=== PATIENT | female | born 1950 | race Caucasian/White ===

== ENCOUNTER 2016-11-14 04:38 | Observation (INO) ==
[2016-11-14] MEDS ORDERED: Ipratropium/Albuterol Neb 3 ML IH ONE (04:42)
[2016-11-14 05:09] LABS: Basophils % 0.4 %; Eosinophils % 0.7 %; Hematocrit 29.5 % (35.3-44.9); Hemoglobin 9.7 g/dL (11.5-15.4); Immature Granulocytes % 0.6 % (0-4); Lymphocytes # 0.6 K/mcL (0.6-4.6); Lymphocytes % 11.6 %; Mean Corpuscular HGB Conc 32.9 g/dL (31.6-35.5); Mean Corpuscular Hemoglobin 30.1 pg (28.0-33.3); Mean Corpuscular Volume 91.6 fL (83.0-100.0); Mean Platelet Volume 12.1 fL (9.4-12.4); Monocytes # 0.4 K/mcL (0.0-1.3); Monocytes % 7.3 %; Neutrophils # 4.2 K/mcL (1.6-8.9); Platelet Count 159 K/mcL (140-400); Red Blood Count 3.22 M/mcL (3.82-4.97); Segmented Neutrophils % 79.4 %
[2016-11-14] MEDS ORDERED: *HR* Promethazine 25 MG/ML VIAL IVP STA (05:14)
[2016-11-14 05:15] LABS: Prothrombin Time 22.1 Seconds (9.4-12.1)
--- NOTE | 2016-11-14 05:17 | Emergency Department Note ---
Disposition Clinical Impression: CHF (congestive heart failure) Qualifiers: Congestive heart failure type: unspecified congestive heart failure type Congestive heart failure chronicity: unspecified congestive heart failure chronicity Qualified Code(s): I50.9 - Heart failure, unspecified Disposition: Admitted As Inpatient Condition: Fair SOB HPI - General Chief Complaint: ED Shortness of Breath/Dyspnea Stated Complaint: difficulty breathing Time Seen by Provider: 11/14/16 04:46 Source: EMS Limitations: no limitations Nursing Notes Reviewed: Yes Vital Signs Reviewed: Yes - History of Present Illness Patient is a 66-year-old female. COPD and congestive heart failure. She presents by squad due to difficulty in breathing which began last evening. Pt Subjective Complaint: shortness of breath - Related Data Home Medications Medication Instructions Recorded Confirmed Albuterol Sulfate [Proair Hfa] 2 puff IH Q4-6H PRN 01/12/16 10/08/16 Clopidogrel [Plavix] 75 mg PO DAILY 01/12/16 10/08/16 Duloxetine HCl [Cymbalta] 60 mg PO QHS 01/12/16 10/08/16 Ergocalciferol (VITAMIN D2) 50,000 unit PO DAILY 01/12/16 10/08/16 [Vitamin D2 (50,000 UNIT)] Fluticasone/Salmeterol [Advair 2 each IH BID 01/12/16 10/08/16 500-50 Diskus] Isosorbide MONOnitrate (24 HR) 60 mg PO DAILY 01/12/16 10/08/16 [Imdur] Ranolazine [Ranexa] 1,000 mg PO BID 01/12/16 10/08/16 Simvastatin [Zocor] 20 mg PO HS 01/12/16 10/08/16 Tiotropium [Spiriva] 18 mcg IH 0700 01/12/16 10/08/16 Calcitriol [Rocaltrol] 0.25 mcg PO DAILY 06/25/16 10/08/16 Cetirizine HCl [Zyrtec] 10 mg PO DAILY PRN 06/25/16 10/08/16 LORazepam [Ativan] 1 mg PO BID PRN 06/25/16 10/08/16 Lactulose 15 gm PO HS PRN 06/25/16 10/08/16 Pantoprazole Sodium [Protonix] 40 mg PO DAILY 06/28/16 08/30/16 Tizanidine HCl 4 mg PO TID PRN 06/28/16 10/08/16 Insulin LISPRO [HumaLOG] 20 units SQ TIDWM 10/08/16 10/08/16 Lisinopril 2.5 mg PO DAILY 10/08/16 10/08/16 Promethazine [Phenergan] 12.5 mg PO Q8HR PRN 10/08/16 10/08/16 Previous Rx's Medication Instructions Recorded Furosemide [Lasix] 20 mg PO DAILY #30 tablet 08/27/16 Lactobacillus [Culturelle] 1 each PO BID #6 cap.sprink 08/27/16 Warfarin [Coumadin] 5 mg PO DAILY@1800 #30 tablet 09/01/16 Allopurinol [Zyloprim] 200 mg PO DAILY #60 tablet 10/10/16 Gabapentin [Neurontin] 800 mg PO TID #180 capsule 10/10/16 Insulin DETEMIR [Levemir] 90 unit SQ BID #0 10/10/16 Lactobacillus [Culturelle] 1 each PO BID #6 cap.sprink 10/10/16 Levofloxacin [Levaquin] 500 mg PO DAILY #3 tablet 10/10/16 Metoprolol [Lopressor] 50 mg PO BID #60 tablet 10/10/16 PredniSONE 10 mg PO BIDWM #6 tablet 10/10/16 Allergies Allergy/AdvReac Type Severity Reaction Status Date / Time Penicillins Allergy Hives Verified 11/14/16 04:55 tramadol [From Ultram] Allergy Hives Verified 11/14/16 04:55 aspirin AdvReac Vomiting Verified 11/14/16 04:55 codeine AdvReac Vomiting Verified 11/14/16 04:55 fluticasone AdvReac Rash Verified 11/14/16 04:55 [From Flovent Diskus] morphine AdvReac Hallucinati Verified 11/14/16 04:55 ng Sulfa (Sulfonamide AdvReac Vomiting Verified 11/14/16 04:55 Antibiotics) All systems ED: reviewed and negative except as stated. Past Medical History - Past Medical History Medical history: Reports: arthritis, COPD, DVT, dementia, diabetes, hyperlipidemia, hypertension, myocardial infarction, osteoporosis, renal disease , thyroid disease, TIA Psychiatric history: Reports: depression - Social History Smoking Status: Current every day smoker Smokeless Tobacco Status: No Alcohol use: Reports: none Drug use: Reports: none Physical Exam - General Limitations: no limitations General appearance: alert - Head Head exam: atraumatic - Eye Eye exam: Present: normal appearance - ENT ENT exam: normal exam - Neck Neck exam: Present: normal inspection - Chest Chest inspection: Present: normal inspection - Respiratory Respiratory exam: Present: wheezes - Cardiovascular Cardiovascular exam: Present: regular rate, normal rhythm - Abdominal Exam Abdominal exam: Present: soft, Non-Tender - Expanded Lower Extremity Exam Lower leg exam: Present: swelling Gait: not tested/not observed - Back Exam Back exam: Present: normal inspection - Neurological Exam Neurological exam: Present: alert, oriented X3, CN II-XII intact - Psychiatric Psychiatric exam: Present: normal affect, normal mood - Skin Skin exam: Present: warm, dry Course Vital Signs Temperature 98.2 F 11/14/16 04:40 Pulse Rate 92 11/14/16 04:40 Respiratory Rate 22 11/14/16 04:40 Blood Pressure 138/73 11/14/16 04:40 O2 Sat by Pulse Oximetry 94 L 11/14/16 04:40 Temperature 98.9 F 11/14/16 07:11 Pulse Rate 90 11/14/16 07:11 Respiratory Rate 22 11/14/16 07:11 Blood Pressure 146/76 11/14/16 07:11 O2 Sat by Pulse Oximetry 93 L 11/14/16 07:11 Oxygen Delivery Oxygen Delivery Nasal Cannula Shortness of Breath/Dyspnea - MDM Narrative Medical decision making narrative: Differential: pneumonia Versus COPD versus congestive heart failure versus cardiac event - Lab Data Lab results reviewed: Yes I reviewed the patient's lab results. Result diagrams: 11/14/16 04:55 11/14/16 04:55 Lab Results 11/14/16 11/14/16 11/14/16 Range/Units 04:55 04:55 04:55 WBC 5.3 (4.3-11.1) K/mcL RBC 3.22 L (3.82-4.97) M/mcL Hgb 9.7 L (11.5-15.4) g/dL Hct 29.5 L (35.3-44.9) % MCV 91.6 (83.0-100.0) fL MCH 30.1 (28.0-33.3) pg MCHC 32.9 (31.6-35.5) g/dL RDW 15.0 H (11.5-14.5) % Plt Count 159 (140-400) K/mcL MPV 12.1 (9.4-12.4) fL Immature Gran % 0.6 (0-4) % Seg Neutrophils % 79.4 % Lymphocytes % 11.6 % Monocytes % 7.3 % Eosinophils % 0.7 % Basophils % 0.4 % Neutrophils # 4.2 (1.6-8.9) K/mcL Lymphocytes # 0.6 (0.6-4.6) K/mcL Monocytes # 0.4 (0.0-1.3) K/mcL Eosinophils # 0.0 (0.0-0.6) K/mcL Basophils # 0.0 (0.0-0.2) K/mcL PT 22.1 H (9.4-12.1) Seconds INR 2.0 Sodium 134 L (136-145) mEq/L Potassium 5.2 H (3.5-4.5) mEq/L Chloride 101 (98-109) mEq/L Carbon Dioxide 26 (19-29) mEq/L BUN 29 H (7-20) mg/dL Creatinine 1.31 H (0.57-1.11) mg/dL Est GFR ( Amer) 49 L (> 60) Est GFR (Non-Af Amer) 40 L (> 60) BUN/Creatinine Ratio 22 (6-26) Glucose 236 H (70-99) mg/dL Calculated Osmolality 291 (280-300) Calcium 9.2 (8.6-10.8) mg/dL Total Bilirubin 0.3 (0.2-1.2) mg/dL AST 14 (5-34) Units/L ALT 14 (0-55) Units/L Alkaline Phosphatase 72 (38-126) Units/L Troponin I (0-0.03) ng/mL B-Natriuretic Peptide (0-100) pg/mL Serum Total Protein 6.2 (6.0-8.3) g/dL Albumin 2.6 L (3.5-5.0) g/dL Globulin 3.6 H (2.4-3.5) g/dL Albumin/Globulin Ratio 0.7 L (1.1-2.2) 11/14/16 11/14/16 Range/Units 04:55 04:55 WBC (4.3-11.1) K/mcL RBC (3.82-4.97) M/mcL Hgb (11.5-15.4) g/dL Hct (35.3-44.9) % MCV (83.0-100.0) fL MCH (28.0-33.3) pg MCHC (31.6-35.5) g/dL RDW (11.5-14.5) % Plt Count (140-400) K/mcL MPV (9.4-12.4) fL Immature Gran % (0-4) % Seg Neutrophils % % Lymphocytes % % Monocytes % % Eosinophils % % Basophils % % Neutrophils # (1.6-8.9) K/mcL Lymphocytes # (0.6-4.6) K/mcL Monocytes # (0.0-1.3) K/mcL Eosinophils # (0.0-0.6) K/mcL Basophils # (0.0-0.2) K/mcL PT (9.4-12.1) Seconds INR Sodium (136-145) mEq/L Potassium (3.5-4.5) mEq/L Chloride (98-109) mEq/L Carbon Dioxide (19-29) mEq/L BUN (7-20) mg/dL Creatinine (0.57-1.11) mg/dL Est GFR ( Amer) (> 60) Est GFR (Non-Af Amer) (> 60) BUN/Creatinine Ratio (6-26) Glucose (70-99) mg/dL Calculated Osmolality (280-300) Calcium (8.6-10.8) mg/dL Total Bilirubin (0.2-1.2) mg/dL AST (5-34) Units/L ALT (0-55) Units/L Alkaline Phosphatase (38-126) Units/L Troponin I 0.03 (0-0.03) ng/mL B-Natriuretic Peptide 815 H (0-100) pg/mL Serum Total Protein (6.0-8.3) g/dL Albumin (3.5-5.0) g/dL Globulin (2.4-3.5) g/dL Albumin/Globulin Ratio (1.1-2.2) - Radiology Data Radiology results reviewed: Yes I reviewed the patient's radiology results. ITS Impressions Chest X-Ray 11/14/16 04:40 IMPRESSION: 1. No acute abnormality. D/ / Rikki Goodrich MD / Rikki Goodrich MD Interpreting Provider: Rikki Goodrich MD - EKG Data EKG attestation: Yes I reviewed and interpreted this EKG. EKG shows normal: Reports: sinus rhythm Rate: Reports: normal Rhythm: Reports: NSR Interpretation: Reports: no acute changes, normal EKG
[2016-11-14 05:27] LABS: Albumin 2.6 g/dL (3.5-5.0); Albumin/Globulin Ratio 0.7 (1.1-2.2); Bilirubin,Total 0.3 mg/dL (0.2-1.2); Calcium 9.2 mg/dL (8.6-10.8); Globulin 3.6 g/dL (2.4-3.5); Potassium 5.2 mEq/L (3.5-4.5); Total Protein 6.2 g/dL (6.0-8.3)
[2016-11-14] MEDS ORDERED: Furosemide 20 MG/2 ML VIAL IVP STA ×2 (05:30→07:08)
[2016-11-14] MEDS ORDERED: Naloxone 0.4 MG/ML INJ IVP PRN ×3 (05:40→07:08)
[2016-11-14] MEDS ORDERED: Furosemide 40 MG/4 ML VIAL IVP SCH ×3 (05:45→12:30)
[2016-11-14] MEDS ORDERED: Furosemide 20 MG/2 ML VIAL IVP ONE ×2 (06:15→20:24)
[2016-11-14] MEDS ORDERED: *HR* LORazepam 1 MG TABLET PO PRN (07:08)
[2016-11-14] MEDS ORDERED: Lactulose Oral Soln 20 GM/30 ML UDC PO PRN (07:08)
[2016-11-14] MEDS ORDERED: Loratadine 10 MG TABLET PO PRN (07:08)
[2016-11-14] MEDS: Tiotropium 18 MCG inhalation IH SCH (07:41)
[2016-11-14] MEDS ORDERED: PredniSONE 10 MG TABLET PO SCH (08:00)
[2016-11-14] MEDS ORDERED: Isosorbide MONOnitrate (24 HR) 60 MG TAB.ER.24H PO SCH (09:00)
[2016-11-14] MEDS: Insulin LISPRO 300 UNITS/3 ML VIAL SQ SCH ×3 (10:02→17:45)
[2016-11-14] MEDS: Gabapentin 400 MG CAPSULE PO SCH ×3 (10:03→20:10)
[2016-11-14] MEDS: Ranolazine 500 MG TAB.ER.12H PO SCH ×2 (10:04→20:10)
[2016-11-14] MEDS: Budesonide/Formoterol 160/4.5 MDI IH SCH ×2 (10:15→21:53)
--- NOTE | 2016-11-14 10:21 | Electrocardiograph Report ---
[facility] Test Date: 2016-11-14 Pat Name: Ad Zamora Department: [id number] Room: [facility] Gender: F [employer] Filling: [id number] : 1950 Requested By: Brandon Tatum Order Number: [id number] Reading MD: Armando Jaime MD Measurements Intervals [place] Rate: 91 P: ID: 0 QRS: 6 QRSD: 126 T: 127 QT: 344 QTc: 392 Interpretive Statements SINUS RHYTHM LBBB LATERAL ISCHEMIA Electronically Signed On 11-14-16 10:18:27 EST by Armando Jaime MD
--- NOTE | 2016-11-14 11:55 | Internal Med History&Physical ---
Date of Encounter: 11/14/16 Time of Encounter: 11:25 Assessment and Plan (1) CHF (congestive heart failure) Current visit: Yes Status: Chronic She has been restarted on Lasix, Zestril, and Lopressor. I will order echocardiogram for further evaluation and follow-up from echo done approximately one year ago which showed LVEF 43%. Qualifiers: Congestive heart failure type: unspecified congestive heart failure type Congestive heart failure chronicity: unspecified congestive heart failure chronicity Qualified Code(s): I50.9 - Heart failure, unspecified (2) Acute exacerbation of chronic obstructive airways disease Current visit: No Status: Acute Continue Symbicort and Spiriva as ordered by emergency room. Will add prn albuterol nebs. (3) CKD (chronic kidney disease) stage 3, GFR 30-59 ml/min Current visit: No Status: Chronic We will monitor renal indices periodically. (4) DVT (deep venous thrombosis) Current visit: No Status: Chronic INR is therapeutic. Continue present dose Coumadin Qualifiers: DVT location: lower extremity Affected thrombotic vein of extremity: unspecified lower extremity distal vein Laterality: right Chronicity: acute Qualified Code(s): I82.4Z1 - Acute embolism and thrombosis of unspecified deep veins of right distal lower extremity (5) Hyperuricemia Current visit: Yes Status: Acute We will check uric acid level in a.m. Internal Medicine - H&P: HPI Chief complaint: Dyspnea Admitted From: Home Plans for Post Hospital Care: Home History of present illness: Ms. Zamora is a 66 year old female who came to emergency room stating she had increased dyspnea over the preceding 24 hours. She reported she had to cathi after her dog who had run down the street. She became extremely dyspneic and did not fully recover upon resting. She was evaluated in emergency room and felt to have exacerbation of COPD and CHF. She was admitted to [facility] floor for ongoing care needs. She was hospitalized most recently at [facility] September 2016 with dyspnea. Her respiratory history is significant for having smoked since age 16 up to 2 packs per day. She has COPD and wears oxygen at home. She has been diagnosed with SWATI but states she cannot tolerate CPAP/BiPAP. She had chest CT done during July 2016 [facility] hospitalization. She has continued to smoke AGAINST MEDICAL ADVICE. Past Med Surg Social Fam HX - Past Medical History Medical history: arthritis, COPD, DVT, dementia, diabetes, hyperlipidemia, hypertension, myocardial infarction, osteoporosis, renal disease, thyroid disease, TIA Psychiatric history: depression - Past Surgical History Surgical History: orthopedic, other, other - Social History Smoking Status: Current every day smoker Packs per day: 1 Smokeless Tobacco Status: No Alcohol use: none Drug use: none - Family History Mother Family Member Ethnicity: Non- Living Status: Hx Family Cardiac Disorders: Yes (CHF, HTN) Hx Family Respiratory Disorders: No Hx Family Cancer: No Hx Family GI Disorders: No Hx Family Endocrine Disorder: Yes (Psorosis) Hx Family Neuromuscular Disorders: No Hx Family Neurologic Disorders: No Hx Family HEENT Disorders: No Hx Family Autoimmune Disorders: No Internal Medicine - H&P: Meds Albuterol Sulfate [Proair Hfa] 2 puff IH Q4-6H PRN 01/12/16 [History] Clopidogrel [Plavix] 75 mg PO DAILY 01/12/16 [History] Duloxetine HCl [Cymbalta] 60 mg PO QHS 01/12/16 [History] Ergocalciferol (VITAMIN D2) [Vitamin D2 (50,000 UNIT)] 50,000 unit PO DAILY [History] Fluticasone/Salmeterol [Advair 500-50 Diskus] 2 each IH BID 01/12/16 [History] Isosorbide MONOnitrate (24 HR) [Imdur] 60 mg PO DAILY 01/12/16 [History] Ranolazine [Ranexa] 1,000 mg PO BID 01/12/16 [History] Simvastatin [Zocor] 20 mg PO HS 01/12/16 [History] Tiotropium [Spiriva] 18 mcg IH 0700 01/12/16 [History] Calcitriol [Rocaltrol] 0.25 mcg PO DAILY 06/25/16 [History] Cetirizine HCl [Zyrtec] 10 mg PO DAILY PRN 06/25/16 [History] LORazepam [Ativan] 1 mg PO BID PRN 06/25/16 [History] Lactulose 15 gm PO HS PRN 06/25/16 [History] Pantoprazole Sodium [Protonix] 40 mg PO DAILY 06/28/16 [History] Tizanidine HCl 4 mg PO TID PRN 06/28/16 [History] Furosemide [Lasix] 20 mg PO DAILY #30 tablet 08/27/16 [Rx] Lactobacillus [Culturelle] 1 each PO BID #6 cap.sprink 08/27/16 [Rx] Warfarin [Coumadin] 5 mg PO DAILY@1800 #30 tablet 09/01/16 [Rx] Insulin LISPRO [HumaLOG] 20 units SQ TIDWM 10/08/16 [History] Lisinopril 2.5 mg PO DAILY 10/08/16 [History] Promethazine [Phenergan] 12.5 mg PO Q8HR PRN 10/08/16 [History] Allopurinol [Zyloprim] 200 mg PO DAILY #60 tablet 10/10/16 [Rx] Gabapentin [Neurontin] 800 mg PO TID #180 capsule 10/10/16 [Rx] Insulin DETEMIR [Levemir] 90 unit SQ BID #0 10/10/16 [Rx] Lactobacillus [Culturelle] 1 each PO BID #6 cap.sprink 10/10/16 [Rx] Levofloxacin [Levaquin] 500 mg PO DAILY #3 tablet 10/10/16 [Rx] Metoprolol [Lopressor] 50 mg PO BID #60 tablet 10/10/16 [Rx] PredniSONE 10 mg PO BIDWM #6 tablet 10/10/16 [Rx] Allergies Penicillins Allergy (Verified 11/14/16 04:55) Hives tramadol [From Ultram] Allergy (Verified 11/14/16 04:55) Hives aspirin Adverse Reaction (Verified 11/14/16 04:55) Vomiting codeine Adverse Reaction (Verified 11/14/16 04:55) Vomiting fluticasone [From Flovent Diskus] Adverse Reaction (Verified 11/14/16 04:55) Rash morphine Adverse Reaction (Verified 11/14/16 04:55) Hallucinating Sulfa (Sulfonamide Antibiotics) Adverse Reaction (Verified 11/14/16 04:55) Vomiting All Systems PM: A 10-system review of systems was performed and is negative for pertinent findings except as documented above in the HPI. Review of systems: Review of systems from the September 2016 [facility] hospitalization were reviewed and revised as below. Gen.: Her weight has decreased from the April 2014 [facility] hospitalization at approximately 98 kilograms to present weight of 90.718 kg Cardiovascular: She has hypertension and known ASHD status post [place] 1993 followed by 2 vessel CABG that year. She has had 9 stents placed in the interim with her most recent cath and stents done in early 2013. She has history of DVTs in 1965 and in the mid 1970s in addition to the DVT diagnosed during a recent [facility] visit. She is now on Coumadin. She has a diagnosis of CHF. She had an echocardiogram done 06/04/2014 which showed LVEF of 55%. There was left atrial enlargement with trivial MR and TR. She had a pharmacologic EST December 2014 which showed LVEF of 43% with some global hypokinesia and abnormal septal motion. There was no evidence of ischemia on EKG or perfusion imaging. She follows regularly with a spanish tutor at [facility]. Respiratory: As per history of present illness GI: She has had cholecystectomy but denies disorders of her liver or exocrine pancreas : She is had kidney stones and has been diagnosed with CKD stage III. 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 She has diabetic peripheral neuropathy. Endocrine: She was diagnosed with DM 2 in 1968. She has hyperlipidemia but no known thyroid disease Hematology/oncology: She had uterine cancer 1970 with curative hysterectomy. She had ovary cancer in 1972 with curative oophorectomy. She has history of anemia but denies other internal malignancies or blood disorders Psychiatric: She has anxiety and depression denies other mental health issues Musk skeletal: She has arthritis but denies gout or osteoporosis. - Constitutional Vitals: Temp Pulse Resp BP Pulse Ox 98.4 F 89 26 131/71 95 11/14/16 10:53 11/14/16 10:53 11/14/16 10:53 11/14/16 10:53 11/14/16 10:53 Exam: Gen.: She is a well-developed obese female who has significant dyspnea at rest and is unable to answer many questions. HEENT: Head is atraumatic and normocephalic. Eyes: EOMI. There is no scleral icterus. Mouth: Mucosa is moist. Neck: Supple and nontender. There is no thyromegaly or adenopathy noted. Heart: Tones are difficult to hear because of respiratory sounds Lungs: She has prolonged expiratory phase and mild diffuse wheezing. She is dyspneic and tachypneic Abdomen: Soft and nontender. No masses or guarding are noted. Extremities: There is no cyanosis edema or clubbing noted. Dorsalis pedis and posterior tibial pulses are trace palpable bilaterally. Her right leg is slightly larger than the left. She has well-healed medial right lower leg scar from previous CABG vein graft harvest. Neurologic: Mental status: She is lethargic. She awakens to answer questions briefly but then quickly becomes less responsive. Cranial nerves: Smile is symmetric. Forehead wrinkles bilaterally. Tongue protrudes midline. EOMI. Motor: There is no pronator drift. Cerebellar: Finger to nose is intact bilaterally. Skin: Warm and dry Internal Med - H&P Results - Labs CBC & Chem 7: 11/14/16 04:55 11/14/16 04:55 - VTE Reasons for not Prescribing Prophylaxis: Not indicated-Anticoagulated or INR therapeutic
[2016-11-14] MEDS ORDERED: Isosorbide MONOnitrate (24 HR) 30 MG TAB.ER.24H PO SCH (12:20)
[2016-11-14] MEDS: *HR* OxyCODONE/APAP 5/325 TABLET PO PRN ×2 (12:22→20:11)
[2016-11-14] MEDS ORDERED: Furosemide 40 MG/4 ML VIAL IVP ONE (13:15)
[2016-11-14 13:50] LABS: ABG PCO2 52 mmHg (35-45); ABG PH 7.33 pH Units (7.32-7.45)
[2016-11-14 13:52] LABS: ABG HCO3 27.4 mEQ/L (21-27); ABG PO2 48 mmHg (85-104)
[2016-11-14 13:53] LABS: ABG Base Excess 1.4 mEq/L (-2.0 to 3.0); ABG Oxygen Saturation 80 % (95-98); Blood Gas FiO2 28 %; Blood Gas Liter Flow 2 L/MIN; Blood Gas Respiration Rate 20
[2016-11-14] MEDS: Albuterol 2.5 MG/3 ML NEBULIZER IH PRN ×2 (16:15→19:56)
[2016-11-14] MEDS: PredniSONE 10 MG TABLET PO SCH (17:53)
[2016-11-14] MEDS ORDERED: *HR* Warfarin 5 MG TABLET PO SCH (18:00)
[2016-11-15] MEDS: *HR* OxyCODONE/APAP 5/325 TABLET PO PRN (03:06)
[2016-11-15 06:49] LABS: Basophils % 0.3 %; Hematocrit 33.7 % (35.3-44.9); Hemoglobin 10.7 g/dL (11.5-15.4); Immature Granulocytes % 1.3 % (0-4); Lymphocytes # 0.8 K/mcL (0.6-4.6); Mean Corpuscular HGB Conc 31.8 g/dL (31.6-35.5); Mean Corpuscular Hemoglobin 30.1 pg (28.0-33.3); Mean Corpuscular Volume 94.9 fL (83.0-100.0); Mean Platelet Volume 12.3 fL (9.4-12.4); Monocytes # 0.5 K/mcL (0.0-1.3); Monocytes % 5.8 %; Neutrophils # 7.4 K/mcL (1.6-8.9); Platelet Count 194 K/mcL (140-400); Red Blood Count 3.55 M/mcL (3.82-4.97); Red Cell Distribution Width 15.1 % (11.5-14.5); Segmented Neutrophils % 83.6 %
[2016-11-15 07:03] LABS: ABG Base Excess -2.8 mEq/L (-2.0 to 3.0); ABG HCO3 27.2 mEQ/L (21-27); ABG PCO2 75 mmHg (35-45); ABG PH 7.17 pH Units (7.32-7.45); ABG PO2 53 mmHg (85-104); ABG TCO2 29.5 mEq/L (20-26)
[2016-11-15 07:04] LABS: ABG Oxygen Saturation 76 % (95-98)
[2016-11-15 07:06] LABS: Calcium 9.3 mg/dL (8.6-10.8); Potassium 5.9 mEq/L (3.5-4.5); Uric Acid 6.6 mg/dL (2.6-6.0)
[2016-11-15] MEDS: Budesonide/Formoterol 160/4.5 MDI IH SCH (08:41)
[2016-11-15] MEDS: Tiotropium 18 MCG inhalation IH SCH (08:42)
[2016-11-15] MEDS ORDERED: Furosemide 40 MG/4 ML VIAL IVP ONE (08:50)
[2016-11-15] MEDS ORDERED: Furosemide 40 MG/4 ML VIAL IVP SCH (09:00)
[2016-11-15 09:06] VITALS: BP 139/79
[2016-11-15] MEDS: *HR* LORazepam 2 MG/ML VIAL IVP PRN ×2 (09:07→11:29)
--- NOTE | 2016-11-15 09:11 | ECHO - Doppler Report ---
Echocardiogram Name: Ad Zamora Date of Study: 11/14/2016 Date: 1950 Ht: 66.0 in Medical Record#: [id number] Age: 66 Wt: 200.0 lb Gender: Female BSA: 2 Order #: [id number] Location: [facility] Room #: 50 Reading Physician: Robert Perry MD, [facility] [employer] Technician: Derik Yap [facility] Ordering Physician: [place] MD Primary Physician: Indications: Shortness of breath Impressions: Mildly dilated left ventricle. Moderate left ventricular systolic dysfunction, LVEF 35-40%. See diagram below regarding regional wall motion abnormalities. Mild concentric left ventricular hypertrophy. Moderate left ventricular diastolic dysfunction. Normal right ventricular size and function. Severely dilated left atrium. Mild mitral regurgitation. Mild tricuspid regurgitation. Moderate pulmonary hypertension. Estimated RVSP = 56 mmHg. Left Ventricular Wall Motion: Rest Echo Findings The apex, apical inferior, mid inferior, basal inferior, apical lateral, mid anterior lateral, basal anterior lateral, mid inferior lateral and basal inferior lateral torrez were hypokinetic. All other wall segments showed normal motion. Findings: Study Quality * Suboptimal echo windows. ECG Findings * Normal sinus rhythm. Left Ventricle * Mildly dilated left ventricle. * Moderate left ventricular systolic dysfunction, LVEF 35-40%. See diagram below regarding regional wall motion abnormalities. * Mild concentric left ventricular hypertrophy. * Moderate left ventricular diastolic dysfunction. Right Ventricle * Normal right ventricular size and function. Left Atrium * Severely dilated left atrium. Right Atrium * Normal right atrial size. Aorta * Normally sized aortic root. Pericardium * There is no pericardial effusion present. IVC * The IVC is dilated. * < 50% respiratory change. Mitral Valve * Mild mitral annular calcification * No mitral stenosis. * Mild mitral regurgitation. Tricuspid Valve * Normal tricuspid valve structure. * No tricuspid stenosis. * Mild tricuspid regurgitation. * Moderate pulmonary hypertension. Estimated RVSP = 56 mmHg. Aortic Valve * Trileaflet aortic valve. * Mildly sclerotic aortic valve leaflets. * No aortic stenosis. * No aortic regurgitation. Pulmonic Valve * Pulmonic valve not well visualized. * No pulmonic stenosis. * Trace pulmonic regurgitation. History Hypertension Diabetes Family History of CAD History of CAD/PTCA Myocardial Infarction Coronary Artery Bypass Graft 06/04/14 a Previous Echo was performed. Measurements: BP: 145/ 61 2D Normal Values RVIDd: 3.80 cm <2.7 cm IVSd: 1.30 cm 0.6 - 1.0 cm LVIDd: 6.00 cm 3.7 - 5.6 cm LVPWd: 1.20 cm 0.6 - 1.1 cm LVIDs: 4.80 cm 1.5 - 3.6 cm AO: 3.10 cm < 4.0 cm LA volume: 100 Mitral Valve Peak E:1.40 m/sec Peak A:.79 m/sec E/A Ratio:1.8 Tricuspid Valve TV Regurg Peak Grad: 41.00mmHg TV Regurg Peak Bryant: 3.21m/sec Updated by Robert Perry MD, FACC on 11/15/2016 9:06:09 AM electronically signed on 11/15/2016 9:07:07 AM with status of Final Wall Motion Hernandez: 1=Normal, 2=Hypokinesis, 3=Akinesis, 4=Dyskinesis, 5=Aneurysmal, 6=Hyperkinetic, X=Not Visualized (Blank)=Missing
[2016-11-15 09:26] LABS: ABG HCO3 26.6 mEQ/L (21-27); ABG PCO2 61 mmHg (35-45); ABG PH 7.25 pH Units (7.32-7.45); ABG PO2 59 mmHg (85-104); ABG TCO2 28.5 mEq/L (20-26)
[2016-11-15] MEDS: Insulin LISPRO 300 UNITS/3 ML VIAL SQ SCH (09:26)
[2016-11-15 09:27] LABS: ABG Base Excess -0.7 mEq/L (-2.0 to 3.0); ABG Oxygen Saturation 85 % (95-98); Blood Gas BiPAP(E) 6 cm H2O; Blood Gas BiPAP(I) 14 cm H2O; Blood Gas FiO2 35 %; Blood Gas Respiration Rate 12
[2016-11-15] MEDS: PredniSONE 10 MG TABLET PO SCH (09:28)
[2016-11-15] MEDS ORDERED: *HR* Digoxin 0.5 MG/2 ML AMPUL IVP ONE (09:39)
[2016-11-15] MEDS: Gabapentin 400 MG CAPSULE PO SCH (10:09)
[2016-11-15] MEDS: Ranolazine 500 MG TAB.ER.12H PO SCH (10:10)
[2016-11-15] MEDS: Albuterol 2.5 MG/3 ML NEBULIZER IH PRN (11:24)
--- NOTE | 2016-11-15 11:42 | Discharge Summary ---
Date of Encounter: 11/15/16 Time of Encounter: 11:20 - Discharge Diagnosis (1) CHF (congestive heart failure) Priority: Primary Status: Chronic Qualifiers: Congestive heart failure type: unspecified congestive heart failure type Congestive heart failure chronicity: unspecified congestive heart failure chronicity Qualified Code(s): I50.9 - Heart failure, unspecified (2) Acute exacerbation of chronic obstructive airways disease Priority: Secondary Status: Acute (3) CKD (chronic kidney disease) stage 3, GFR 30-59 ml/min Priority: Secondary Status: Chronic (4) DVT (deep venous thrombosis) Priority: Secondary Status: Chronic Qualifiers: DVT location: lower extremity Affected thrombotic vein of extremity: unspecified lower extremity distal vein Laterality: right Chronicity: acute Qualified Code(s): I82.4Z1 - Acute embolism and thrombosis of unspecified deep veins of right distal lower extremity (5) Hyperuricemia Priority: Secondary Status: Acute - Discharge Medications Home Medications: Albuterol Sulfate [Proair Hfa] 2 puff IH Q4-6H PRN 01/12/16 [History] Clopidogrel [Plavix] 75 mg PO DAILY 01/12/16 [History] Duloxetine HCl [Cymbalta] 60 mg PO QHS 01/12/16 [History] Ergocalciferol (VITAMIN D2) [Vitamin D2 (50,000 UNIT)] 50,000 unit PO DAILY [History] Fluticasone/Salmeterol [Advair 500-50 Diskus] 2 each IH BID 01/12/16 [History] Isosorbide MONOnitrate (24 HR) [Imdur] 60 mg PO DAILY 01/12/16 [History] Ranolazine [Ranexa] 1,000 mg PO BID 01/12/16 [History] Simvastatin [Zocor] 20 mg PO HS 01/12/16 [History] Tiotropium [Spiriva] 18 mcg IH 0700 01/12/16 [History] Calcitriol [Rocaltrol] 0.25 mcg PO DAILY 06/25/16 [History] Cetirizine HCl [Zyrtec] 10 mg PO DAILY PRN 06/25/16 [History] LORazepam [Ativan] 1 mg PO BID PRN 06/25/16 [History] Lactulose 15 gm PO HS PRN 06/25/16 [History] Pantoprazole Sodium [Protonix] 40 mg PO DAILY 06/28/16 [History] Tizanidine HCl 4 mg PO TID PRN 06/28/16 [History] Furosemide [Lasix] 20 mg PO DAILY #30 tablet 08/27/16 [Rx] Lactobacillus [Culturelle] 1 each PO BID #6 cap.sprink 08/27/16 [Rx] Warfarin [Coumadin] 5 mg PO DAILY@1800 #30 tablet 09/01/16 [Rx] Insulin LISPRO [HumaLOG] 20 units SQ TIDWM 10/08/16 [History] Lisinopril 2.5 mg PO DAILY 10/08/16 [History] Promethazine [Phenergan] 12.5 mg PO Q8HR PRN 10/08/16 [History] Allopurinol [Zyloprim] 200 mg PO DAILY #60 tablet 10/10/16 [Rx] Gabapentin [Neurontin] 800 mg PO TID #180 capsule 10/10/16 [Rx] Insulin DETEMIR [Levemir] 90 unit SQ BID #0 10/10/16 [Rx] Lactobacillus [Culturelle] 1 each PO BID #6 cap.sprink 10/10/16 [Rx] Metoprolol [Lopressor] 50 mg PO BID #60 tablet 10/10/16 [Rx] PredniSONE 10 mg PO BIDWM #6 tablet 10/10/16 [Rx] Allergies/Adverse Reactions: Allergies Penicillins Allergy (Verified 11/14/16 04:55) Hives tramadol [From Ultram] Allergy (Verified 11/14/16 04:55) Hives aspirin Adverse Reaction (Verified 11/14/16 04:55) Vomiting codeine Adverse Reaction (Verified 11/14/16 04:55) Vomiting fluticasone [From Flovent Diskus] Adverse Reaction (Verified 11/14/16 04:55) Rash morphine Adverse Reaction (Verified 11/14/16 04:55) Hallucinating Sulfa (Sulfonamide Antibiotics) Adverse Reaction (Verified 11/14/16 04:55) Vomiting Procedures/tests Complete & Pending: Procedures Performed prior 72 hours Category Date Time Status EV echocardiogram Routine Y 11/14/16 12:13 Completed Date of admission: 11/14/16 05:45 Primary care physician: Jaswinder Rogers DO Consults: 11/14/16 08:20 Consult to [facility]o Team Lead [CONS] Routine Reason for SW Consult: Discharge planning - Patient Status Disposition: Transfer Other Condition: Fair - Discharge Instructions Hospital course: Ms. Zamora is a 66 year old female who came to emergency room stating she had increased dyspnea over the preceding 24 hours. She reported she had to cathi after her dog who had run down the street. She became extremely dyspneic and did not fully recover upon resting. She was evaluated in emergency room and felt to have exacerbation of COPD and CHF. She was admitted to [facility] for ongoing care needs. Initial orders were written by emergency room physician. I saw her on November 14 and performed the history and physical. She was restarted on Lasix, lisinopril, and Lopressor. I ordered an echocardiogram to further evaluate. Her LVEF returned decreased at 35-40% which has worsened since her last echocardiogram in May 2014 when it was 55% and a pharmacologic EST December 2014 showing LVEF of 43%. She had worsening dyspnea and required BiPAP to maintain satisfactory oxygenation and ventilation. A blood gas done the morning of November 15 showed pH 7.17. PCO2 75. She improved with BiPAP to pH 7.25 but remained significantly dyspneic and tachycardic with frequent episodes of hypoxemia. Her family wished her to be transferred to [facility]. I spoke with the ICU physician who agreed to accept her in transfer. - Time Spent with Patient Total time spent providing and/or coordinating discharge services: - Constitutional Vitals: Temp Pulse Resp BP Pulse Ox 98.1 F 103 28 139/79 91 L 11/15/16 06:41 11/15/16 09:04 11/15/16 11:25 11/15/16 09:04 11/15/16 11:25 - VTE Reasons for not Prescribing Prophylaxis: Not indicated-Anticoagulated or INR therapeutic
== END 2016-11-15 12:29 | disposition short-term general hospital (02) ==
LOC: EMEROOPIK 04:38 → INPPIK 04:38
PROVIDERS: ADMIT Internal Medicine; ATTEND Internal Medicine